=== PATIENT | male | born 1940 | race Caucasian/White ===

== ENCOUNTER 2024-06-06 07:00 | Outpatient (CLI) | payer MEDICARE ==
--- NOTE | 2024-06-06 18:49 | XRAY Report ---
PROCEDURE: Chest 2V INDICATIONS: BRONCHITIS TECHNIQUE: 2 views of the chest were acquired. COMPARISON: None. FINDINGS: Surgical changes and devices: Mediastinal wires are seen.. Lungs and pleura: No pleural effusions or pneumothorax. Lungs are clear. Mediastinum: Mediastinal contours appear normal. Heart size is normal. Bones and chest wall: No suspicious bony lesions. Overlying soft tissues appear unremarkable. IMPRESSION: No acute cardiopulmonary process. Reviewed by: Cem Lopez MD on 06/06/2024 6:47 PM PDT Approved by: Cem Lopez MD on 06/06/2024 6:47 PM PDT Station ID: [id number]
== END 2024-06-06 23:59 | disposition home or self-care (01) ==
LOC: DI.S 07:00
PROVIDERS: ATTEND Physician Assistant Medical
DX: J20.9 Acute bronchitis, unspecified (principal); R09.89 Other specified symptoms and signs involving the circulatory and respiratory systems

== ENCOUNTER 2024-07-09 14:14 | Emergency (ER) | payer MEDICARE ==
[2024-07-09 14:27] VITALS: BP 160/64; O2SAT 98
--- NOTE | 2024-07-09 15:43 | ED Physician Documentation ---
History of Present Illness - Stated complaint Stated Complaint: HEARS PULSE IN EARS - Chief complaint Chief Complaint: Heent - Additonal information Additional information: Patient is a 84-year-old male with past medical history of hypertension and tinnitus. Patient presents with hearing blood rushing in his ears when he is going from sitting to standing position. He notes symptoms have been going on for a few days. 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 He monitors his blood pressure at home but is on metoprolol at home daily. He denies any n ew blood pressure medications. He denies any headaches no vision changes no neck pain associated with the symptoms. PD PAST MEDICAL HISTORY - Past Medical History Past Medical History: Yes Cardiovascular: Hypertension - Past Surgical History Past Surgical History: Yes Cardiovascular: CABG - Present Medications Home Medications: Ambulatory Orders Medication Instructions Recorded Confirmed Lisinopril [Zestril] 10 mg PO DAILY 7 Days #7 tablet 07/09/24 - Allergies Allergies/Adverse Reactions: Allergies Allergy/AdvReac Type Severity Reaction Status Date / Time [id number] Reductase Allergy Cramps Verified 07/09/24 14:19 Inhibitor - Social History Does the pt smoke?: No Smoking Status: Never smoker Does the pt drink ETOH?: No Does the pt have substance abuse?: No - Immunizations Immunizations are current?: Yes PD ED PE NORMAL - Vitals Vital signs reviewed: Yes - General General: Alert and oriented X 3 - HEENT HEENT: Atraumatic, PERRL - Neck Neck: Supple, no meningeal sign, No bruit - Cardiac Cardiac: RRR, No murmur, No gallop, No rub - Respiratory Respiratory: No respiratory distress, Clear bilaterally - Abdomen Abdomen: Normal bowel sounds - Male Male : Deferred - Rectal Rectal: Deferred - Derm Derm: Normal color - Neuro Neuro: Alert and oriented X 3 Results - Vitals Vitals: Oxygen O2 Source Room air PD Medical Decision Making - ED course Complexity details: reviewed old records, re-evaluated patient ED course: Patient is an 84-year-old male past medical history of hypertension and tinnitus presents to the emergency department with hearing pulsatile in ringing in both ears. He notes symptoms have been going on for few days. He denies any other symptoms associated with this. He notes chronic tinnitus but the symptoms are different. Blood pressure elevated over 160 here in the emergency department. Discussed with patient symptoms could be secondary to elevated blood pressure reading. Given no other symptoms including chest pain shortness of breath dizziness lightheadedness neck pain unilateral pulsatile ringing he is safe for discharge home. Given reassuring findings. Patient will follow-up with his PCP in outpatient setting. Short course of lisinopril ordered here in the emergency department for patient to begin taking at home to see if this improves his symptoms. Patient has no adverse or allergies to history of lisinopril. He notes he cannot increase his metoprolol dose as it causes worsening bradycardia. Instructed patient to watch for any dizziness lightheadedness symptoms worsening pulsatile sounds neck pain headaches vision changes difficulty walking feelings of off balance. These are signs he should return to the emergency department. Patient understands and is agreeable with this plan. Departure - Departure Disposition: 01 Home, Self Care Clinical Impression: Hypertension, Subjective pulsatile tinnitus of both ears Condition: Good Prescriptions: Lisinopril [Zestril] 10 mg PO DAILY 7 Days #7 tablet Comments: Your workup here in the emergency department was reassuring you symptoms most likely secondary to elevated blood pressure or symptomatic tinnitus. I suspect most likely due to blood pressure given readings here in the emergency department. You should monitor your blood pressure at home have started you on a small dose of blood pressure medication you can take daily and follow-up with your PCP in the outpatient setting. Return to the ED with any new or worsening symptoms and follow-up in the outpatient setting to ensure resolution of symptoms. Forms: PCP List Discharge Date/Time: 07/09/24 16:58
== END 2024-07-09 16:58 | disposition home or self-care (01) ==
LOC: ED 14:14
DX: I10 Essential (primary) hypertension (principal); H93.A3 Pulsatile tinnitus, bilateral; Z95.1 Presence of aortocoronary bypass graft
CPT/HCPCS: 99281; 99283